=== PATIENT | female | born 1980 | race Caucasian/White ===

== ENCOUNTER 2017-02-15 16:19 | Emergency (ER) | payer BC ==
[2017-02-15] MEDS ORDERED: ONDANSETRON HCL IV 4 MG/2 ML VIAL IVP ONE (16:48)
[2017-02-15] MEDS ORDERED: MORPHINE SULFATE 5 MG/ML PFS IVP ONE (16:48)
--- NOTE | 2017-02-15 16:52 | Emergency Department Record ---
History of Present Illness - General Chief complaint: Head Injury Stated complaint: injury face Time Seen by Provider: 02/15/17 16:43 Source: Patient Mode of Arrival: Ambulatory Limitations: No limitations - History of Present Illness Initial comments: 36 yo female presents to ED for evaluation following an injury to the face/head LESIA. Patient reports that she and her SO are building a cabin, was working outdoors when a 1x8 piece of oak fell striking her in the face and resulting in LOC. Patient reports moderate-severe headache, small laceration to the face near the base of the right nare and cheek region. Patient denies injury below the neck. MD Complaint: Head injury Onset/Timin -: Minutes(s) Arrival Conditions: Other Mechanism of Injury: Other Location: Face Loss of Consciousness: Yes, Second(s) Previous Trauma to this Area: No Place: Home Radiation: Other Quality: Aching Provoking factors: None known Other Injuries: Dental Associated Symptoms: Denies other symptoms - Related Data Allergies/Adverse reactions: Allergies Allergy/AdvReac Type Severity Reaction Status Date / Time No Known Drug Allergies Allergy Verified 03/09/15 15:14 Travel Screening - Travel/Exposure Within Last 30 Days Have you traveled within the last 30 days?: No - Travel/Exposure Within Last Year Have you traveled outside the [place] in the last year?: No - Additonal Travel Details Have you been exposed to anyone with a communicable illness?: No - Travel Symptoms Symptom Screening: None Review of Systems Constitutional: Denies: Chills, Fever, Malaise, Night sweats Eyes: Denies: Eye discharge, Eye pain ENT: Reports: Other (facial laceration). Denies: Congestion, Ear pain, Epistaxis Respiratory: Denies: Cough, Dyspnea Cardiovascular: Denies: Chest pain, Dyspnea on exertion Endocrine: Denies: Fatigue, Heat or cold intolerance Gastrointestinal: Denies: Abdominal pain, Nausea, Vomiting Genitourinary: Denies: Incontinence, Retention Musculoskeletal: Denies: Arthralgia, Back pain Skin: Denies: Bruising, Change in color Neurological: Reports: Headache. Denies: Abnormal gait, Confusion, Seizure Psychiatric: Denies: Anxiety Hematological/Lymphatic: Denies: Anemia, Blood Clots Past Medical History - SOCIAL HISTORY Smoking Status: Current every day smoker Alcohol Use: Occassional Drug Use: None - RESPIRATORY Hx Respiratory Disorders: No - CARDIOVASCULAR Hx Cardio Disorders: No - NEURO Hx Neuro Disorders: No - GI Hx GI Disorders: No - Hx Genitourinary Disorders: No - ENDOCRINE Hx Endocrine Disorders: No - MUSCULOSKELETAL Hx Musculoskeletal Disorders: No - PSYCH Hx Psych Problems: No - HEMATOLOGY/ONCOLOGY Hx Hematology/Oncology Disorders: No Family Medical History Any Significant Family History?: No Physical Exam - General General Appearance: Alert, Oriented x3, Cooperative, Moderate distress Limitations: No limitations - Head Head exam: Normocephalic, Other (small laceration to the junction of the right nare with the right face, bleeding is controlled) Head exam detail: Laceration. negative: Abrasion, Contusion, Cameron's sign, General tenderness, Hematoma - Eye Eye exam: Normal appearance. negative: Periorbital swelling, Periorbital tenderness - ENT Ear exam: negative: Auricular hematoma, Auricular trauma Nasal Exam: negative: Active bleeding, Discharge, Dried blood, Foreign body Mouth exam: negative: Drooling, Laceration, Muffled voice, Tongue elevation - Neck Neck exam: Normal inspection. negative: Meningismus, Tenderness - Respiratory Respiratory exam: Normal lung sounds bilaterally. negative: Rales, Respiratory distress, Rhonchi, Stridor - Cardiovascular Cardiovascular Exam: Regular rate, Normal rhythm, Normal heart sounds - GI/Abdominal GI/Abdominal exam: Soft. negative: Rebound, Rigid, Tenderness - Rectal Rectal exam: Deferred - exam: Deferred - Extremities Extremities exam: Normal inspection. negative: Calf tenderness, Pedal edema, Tenderness - Back Back exam: Denies: CVA tenderness (R), CVA tenderness (L) - Neurological Neurological exam: Alert, Normal gait, Oriented X3 - Psychiatric Psychiatric exam: Normal affect, Normal mood - Skin Skin exam: Normal color. negative: Abrasion Type of lesion: negative: abrasion Course Vital Signs 02/15/17 16:22 Temperature 98.5 F Pulse Rate 83 Respiratory 16 Rate Blood Pressure 131/93 Pulse Ox 98 - Reevaluation(s) Reevaluation #1: 02/15/17 18:11 Procedure Note: Wound to the right nasal base was anesthetized with TLE followed by 1.5 mL 1% Lidocaine with Epi with good anesthesia. Wound was cleaned extensively with Hibi-Clens solution. Triangular-shaped flap at the base of the right nare was re-approximated using (5) 6-0 Prolene sutures, total length 2.5 cm. Patient tolerated the procedure well without complications. Very good cosmesis was achieved. CT Facial Bones: No fracture identified, small amount gas at the base of the right nare secondary to laceration CT Brain: No acute process CT Cervical Spine: No acute fracture identified Patient was updated on all results as well as counseled regarding scarring following laceration repair. Patient was counseled to use bacitracin over navin wound and to have sutures removed in 5 days to minimize scarring. Patient appears stable for discharge at this time. Disposition Disposition: Discharge Clinical Impression: Facial laceration Qualifiers: Encounter type: initial encounter Qualified Code(s): S01.81XA - Laceration without foreign body of other part of head, initial encounter Head injury Qualifiers: Encounter type: initial encounter Qualified Code(s): S09.90XA - Unspecified injury of head, initial encounter Disposition: Home, Self-Care Condition: (2) Stable Instructions: Care For Your Stitches (ED), Head Injury (ED) Additional Instructions: Return to ED if your symptoms worsen or if you have any concerns. Follow-up with your family doctor in 3-5 days. Sutures out in 5 days. Bacitracin/Triple antibiotic ointment to the nose during healing. Forms: Patient Portal Access Time of Disposition: 18:17
[2017-02-15] MEDS ORDERED: 0.9 % SODIUM CHLORIDE 1000ML 1,000 ML IV SCH (17:00)
[2017-02-15] MEDS ORDERED: IBUPROFEN 400 MG TABLET PO ONE (17:03)
--- NOTE | 2017-02-16 15:55 | CT SCAN REPORT ---
EXAM: CT SCAN HEAD WO CONTRAST HISTORY: HEAD INJURY. TECHNIQUE: Noncontrast head CT. COMPARISON: None. FINDINGS: The ventricles and subarachnoid spaces are unremarkable. No mass or mass effect. No intra or extraaxial hemorrhage. No CT evidence for a large acute territorial infarct. The globes and orbits are unremarkable. IMPRESSION: UNREMARKABLE HEAD CT. JOB NUMBER: [id number] MTDD
--- NOTE | 2017-02-16 16:01 | CT SCAN REPORT ---
EXAM: CT SCAN MAXILLOFACIAL WO CONTRAST HISTORY: FACIAL INJURY, RIGHT SIDE. TECHNIQUE: CT of the facial bones is performed without contrast. COMPARISON: None. FINDINGS: No fracture or acute osseous abnormality identified. The sinuses are clear. The globes are symmetric and equal bilaterally. Orbital williamson are unremarkable. Zygomatic arches are unremarkable. Maxilla and mandible are unremarkable. There is some soft tissue gas seen along the right base of the nose, possible due to laceration or injury. No underlying fracture identified. IMPRESSION: 1. NO FACIAL FRACTURE SEEN. 2. SOFT TISSUE GAS SEEN ALONG THE RIGHT BASE OF THE NOSE, LIKELY DUE TO LACERATION. 3. OTHERWISE, UNREMARKABLE. JOB NUMBER: [id number] MTDD
--- NOTE | 2017-02-16 16:08 | CT SCAN REPORT ---
EXAM: CT SCAN CERVICAL SPINE WO CONTRAST HISTORY: INJURY, NECK PAIN. TECHNIQUE: CT of the cervical spine is performed without contrast. COMPARISON: None. FINDINGS: There is loss of the normal lordotic curvature, which is nonspecific , possibly due to patient positioning or muscle spasm. There is no fracture or acute osseous abnormality identified. The disc spaces are well maintained. There is no soft tissue swelling. IMPRESSION: UNREMARKABLE CT OF THE CERVICAL SPINE. THERE IS NO CERVICAL SPINE FRACTURE IDENTIFIED. THERE IS SOME LOSS OF THE NORMAL LORDOTIC CURVATURE, POSSIBLY DUE TO PATIENT POSITIONING OR MUSCLE SPASM. THIS FINDING IS NONSPECIFIC. JOB NUMBER: [id number] [facility]
== END 2017-02-15 18:26 | disposition home or self-care (01) ==
LOC: ER 16:19
DX: S01.411A Laceration without foreign body of right cheek and temporomandibular area, initial encounter (principal); S09.90XA Unspecified injury of head, initial encounter; S02.5XXA Fracture of tooth (traumatic), initial encounter for closed fracture; R51 Headache; W22.8XXA Striking against or struck by other objects, initial encounter; Y93.H3 Activity, building and construction; Y92.009 Unspecified place in unspecified non-institutional (private) residence as the place of occurrence of the external cause
CPT/HCPCS: 12001; 70450; 70486; 72125; 99283; 99284

== ENCOUNTER 2017-02-19 11:33 | Emergency (ER) | payer BC ==
--- NOTE | 2017-02-19 11:54 | Emergency Department Record ---
History of Present Illness - General Chief Complaint: Suture removal Stated Complaint: STITCH REMOVAL Time Seen by Provider: 02/19/17 11:42 Source: Patient Mode of arrival: Ambulatory Limitations: No limitations - History of Present Illness Initial Comments: 36 yo female presents with request for wound check and possible suture removal from the face. She was hit by a 1x8 board. No complaints since the injury. No fever. She has abrasions as well that are healing. Complaint: Suture/staple removal, Wound re-check Onset/Timin -: Days(s) Initial Visit For: Laceration Returns Today for: Staple/stitch removal Symptoms Since Prior Visit: No new symptoms Associated Symptoms: None - Related Data Home Medications Medication Instructions Recorded Confirmed Last Taken No Home Med [NO HOME MEDS] 02/19/17 02/19/17 Unknown Allergies Allergy/AdvReac Type Severity Reaction Status Date / Time No Known Drug Allergies Allergy Verified 03/09/15 15:14 Travel Screening - Travel/Exposure Within Last 30 Days Have you traveled within the last 30 days?: No - Travel/Exposure Within Last Year Have you traveled outside the [place] in the last year?: No - Additonal Travel Details Have you been exposed to anyone with a communicable illness?: No - Travel Symptoms Symptom Screening: None Review of Systems Constitutional: Denies: Chills, Fever Eyes: Denies: Eye discharge, Eye pain, Photophobia, Vision change ENT: Denies: Congestion, Throat pain Gastrointestinal: Denies: Nausea, Vomiting Skin: Reports: Bruising. Denies: Change in color Neurological: Denies: Headache Psychiatric: Denies: Anxiety Hematological/Lymphatic: Denies: Easy bleeding, Easy bruising Past Medical History - SOCIAL HISTORY Smoking Status: Current every day smoker Alcohol Use: Rare Drug Use: None - RESPIRATORY Hx Respiratory Disorders: No - CARDIOVASCULAR Hx Cardio Disorders: No - NEURO Hx Neuro Disorders: No - GI Hx GI Disorders: No - Hx Genitourinary Disorders: No - ENDOCRINE Hx Endocrine Disorders: No - MUSCULOSKELETAL Hx Musculoskeletal Disorders: No - PSYCH Hx Psych Problems: No - HEMATOLOGY/ONCOLOGY Hx Hematology/Oncology Disorders: No Family Medical History Any Significant Family History?: No Physical Exam - General General Appearance: Alert, Oriented x3, Cooperative, No acute distress Limitations: No limitations - Head Head exam: Normal inspection Head exam detail: Laceration (healing laceration with surrounding abrasion, no pus, abnormal erythema or signs of infection) - Eye Eye exam: Normal appearance - ENT ENT exam: Normal exam Ear exam: Normal external inspection Nasal Exam: Normal inspection - Skin Skin exam: Abrasion Course Vital Signs 02/19/17 11:35 Temperature 98.1 F Pulse Rate 72 Respiratory 16 Rate Blood Pressure 105/74 Pulse Ox 99 - Reevaluation(s) Reevaluation #1: The wound is healing with out complication. The 5 sutures were removed without difficulty. We discussed home care and reasons to return 02/19/17 11:55 Disposition Disposition: Discharge Clinical Impression: Visit for suture removal Disposition: Home, Self-Care Condition: (1) Good Instructions: Stitches Removal (ED) Additional Instructions: Return if you have any concerns or questions Return immediately if red, warm to touch, pus, bleeding or questions. Forms: Patient Portal Access Time of Disposition: 11:57
== END 2017-02-19 12:01 | disposition home or self-care (01) ==
LOC: ER 11:33
DX: Z48.02 Encounter for removal of sutures (principal)